=== PATIENT | female | born 1970 | race Caucasian/White ===

== ENCOUNTER 2017-02-17 02:11 | Emergency (ER) | payer SELFPAY ==
[2017-02-17] MEDS ORDERED: Ketorolac Tromethamine 60 MG/2 ML VIAL ONE (02:36)
--- NOTE | 2017-02-17 08:07 | RAD ---
RADIOGRAPH RIGHT HIP TWO VIEWS: History: 46-year-old female with spontaneous, acute, non-traumatic right hip pain. FINDINGS: No displaced fracture identified. Femoral head contour maintained. No subcapital osteophytes. No emir or osteophytes of the acetabulum. The hip joint space is maintained. IMPRESSION: 1. Negative. 2. If symptoms persist, consider noncontrast MRI. POS: [facility]ANTI
--- NOTE | 2017-02-17 08:28 | RAD ---
THREE VIEWS LUMBAR SPINE: History: Right hip and thigh pain. Comparison: None. FINDINGS: There is mild degenerative change along the thoracolumbar junction and the T11-12 level. There are f queenie lumbar type vertebral bodies. Rudimentary rib is noted at the T12 level on the right side. Verte bral body height is maintained. No fracture. There is vacuum disc phenomenon at L4-5. No spondylolis thesis or spondylosis. IMPRESSION: Degenerative changes in the lumbar spine as above. POS: SANTI
== END 2017-02-17 03:25 | disposition home or self-care (01) ==
LOC: ERS 02:11
DX: M54.31 Sciatica, right side (principal); M79.7 Fibromyalgia; E10.40 Type 1 diabetes mellitus with diabetic neuropathy, unspecified; F41.9 Anxiety disorder, unspecified; F32.9 Major depressive disorder, single episode, unspecified; F17.210 Nicotine dependence, cigarettes, uncomplicated
CPT/HCPCS: 72100; 96372; J1885

== ENCOUNTER 2020-09-03 15:39 | Emergency (ER) | payer OTHER, SELFPAY ==
[2020-09-03 16:55] LABS: #Basophils 0.1 thou/uL (0.0-0.2); #Eosinphils 0.2 thou/uL (0.0-0.7); #Lymphocytes 3.6 thou/uL (1.20-3.40); #Monocytes 0.7 thou/uL (0.11-0.59); #Neutrophils 9.9 thou/uL (1.40-6.50); %Basophils 0.6 % (0.0-1.0); %Eosinophils 1.1 % (0.0-10.0); %Lymphocytes 24.9 % (21.0-51.0); %Neutrophils 68.4 % (42.0-75.0); Hemoglobin 13.5 g/dL (12.0-16.0); Mean Corpuscular HGB CONC 33.6 g/dL (32.0-36.0); Mean Corpuscular Hemoglobin 29.2 pg (27.0-31.0); Mean Corpuscular Volume 86.9 fL (78.0-98.0); Mean Platelet Volume 8.1 fL (7.4-10.4); Platelet Count 350 thou/uL (130-400); RBC Distribution Width 12.7 % (11.5-14.5); Red Blood Cell (RBC) Count 4.61 mill/uL (4.20-5.40); White Blood Cell (WBC) Count 14.4 thou/uL (4.8-10.8)
[2020-09-03 16:56] LABS: Actual Bicarbonate (HCO3v) 25 mEq/L (22-28); Analyzer IN Cardio ER; Base Excess 0.5 mEq/L (-2.0 to +3.0); Calcium, Ionized (venous) 1.11 mmol/L (1.16-1.32); Chloride (VBG) 101 mmol/L (98-106); Hemoglobin (Hb) 14.4 g/dL (11.7-16.0); Potassium (VBG) 4.51 mmol/L (3.70-5.30); Sodium 136.3 mmol/L (133-146); pH (venous) 7.43 (7.32-7.43)
[2020-09-03] MEDS ORDERED: Ketorolac Tromethamine 30 MG/ML VIAL ONE (17:06)
[2020-09-03 17:16] LABS: ALT (SGPT) 13 U/L (8-55); AST (SGOT) 9 U/L (5-34); Albumin 4.2 g/dL (3.5-5.0); Alkaline Phosphatase 94 U/L (40-110); Anion Gap 13 mmol/L (10-20); BUN (Urea Nitrogen) 10 mg/dL (9.8-20.1); Bilirubin, Total 0.4 mg/dL (0.2-1.2); Calc. Creatinine Clearance 0 mL/min (70-130); Calcium 9.7 mg/dL (7.8-10.44); Carbon Dioxide 25 mmol/L (22-29); Chloride 102 mmol/L (98-107); Globulin 2.9 g/dL (2.4-3.5); Glucose 295 mg/dL (70-105); Potassium 4.6 mmol/L (3.5-5.1); Protein, Total 7.1 g/dL (6.0-8.3); Sodium 135 mmol/L (136-145)
== END 2020-09-03 18:37 | disposition home or self-care (01) ==
LOC: ERS 15:39
DX: S09.90XA Unspecified injury of head, initial encounter (principal); S80.01XA Contusion of right knee, initial encounter; M54.2 Cervicalgia; M54.5 Low back pain; E10.40 Type 1 diabetes mellitus with diabetic neuropathy, unspecified; F17.210 Nicotine dependence, cigarettes, uncomplicated; V09.9XXA Pedestrian injured in unspecified transport accident, initial encounter
CPT/HCPCS: 36415; 70450; 72100; 72125; 80053; 82010; 82805; 85025; 96374; J1885

== ENCOUNTER 2020-09-06 17:39 | Emergency (ER) | payer SELFPAY ==
[2020-09-06] MEDS ORDERED: Ketorolac Tromethamine 30 MG/ML VIAL ONE (18:39)
== END 2020-09-06 19:03 | disposition home or self-care (01) ==
LOC: ERS 17:39
DX: M54.12 Radiculopathy, cervical region (principal); E10.40 Type 1 diabetes mellitus with diabetic neuropathy, unspecified; F17.210 Nicotine dependence, cigarettes, uncomplicated; M79.7 Fibromyalgia
CPT/HCPCS: 93005; J1885

== ENCOUNTER 2021-02-20 18:07 | Emergency (ER) | payer SELFPAY ==
[2021-02-20 19:44] LABS: #Basophils 0.1 thou/uL (0.0-0.2); #Eosinphils 0.2 thou/uL (0.0-0.7); #Lymphocytes 3.7 thou/uL (1.20-3.40); #Monocytes 0.8 thou/uL (0.11-0.59); #Neutrophils 10.9 thou/uL (1.40-6.50); %Basophils 0.4 % (0.0-1.0); %Lymphocytes 23.5 % (21.0-51.0); %Monocytes 5.4 % (0.0-10.0); %Neutrophils 69.7 % (42.0-75.0); Hemoglobin 14.1 g/dL (12.0-16.0); Mean Corpuscular Hemoglobin 28.4 pg (27.0-31.0); Mean Corpuscular Volume 86.1 fL (78.0-98.0); Mean Platelet Volume 8.4 fL (7.4-10.4); Platelet Count 294 thou/uL (130-400); RBC Distribution Width 12.9 % (11.5-14.5); Red Blood Cell (RBC) Count 4.97 mill/uL (4.20-5.40); White Blood Cell (WBC) Count 15.6 thou/uL (4.8-10.8)
[2021-02-20 20:05] LABS: ALT (SGPT) 17 U/L (8-55); AST (SGOT) 9 U/L (5-34); Albumin 3.9 g/dL (3.5-5.0); Alkaline Phosphatase 95 U/L (40-110); Anion Gap 13 mmol/L (10-20); BUN (Urea Nitrogen) 9 mg/dL (9.8-20.1); Bilirubin, Total 0.4 mg/dL (0.2-1.2); Calc. Creatinine Clearance 0 mL/min (70-130); Calcium 9.3 mg/dL (7.8-10.44); Carbon Dioxide 27 mmol/L (22-29); Glucose 311 mg/dL (70-105); Lipase 12 U/L (8-78); Potassium 4.4 mmol/L (3.5-5.1); Protein, Total 6.9 g/dL (6.0-8.3)
[2021-02-20 20:21] LABS: Chloride 100 mmol/L (98-107); Sodium 135 mmol/L (136-145)
[2021-02-20] MEDS ORDERED: Ondansetron ODT 8 MG TAB ONE (20:39)
== END 2021-02-20 20:49 | disposition home or self-care (01) ==
LOC: ERS 18:07
DX: E10.43 Type 1 diabetes mellitus with diabetic autonomic (poly)neuropathy (principal); E10.40 Type 1 diabetes mellitus with diabetic neuropathy, unspecified; K31.84 Gastroparesis; M79.10 Myalgia, unspecified site; F17.210 Nicotine dependence, cigarettes, uncomplicated
CPT/HCPCS: 36415; 80053; 83690; 85025; 99284; Q0162